=== PATIENT | female | born 1970 | race Two or more races ===

== ENCOUNTER 2016-10-26 18:02 | Emergency (ER) | payer OTHER | END 2016-10-26 20:07 | disposition home or self-care (01) | LOC: ER 18:02 | DX: S09.90XA Unspecified injury of head, initial encounter (principal); K14.8 Other diseases of tongue; V49.9XXA Car occupant (driver) (passenger) injured in unspecified traffic accident, initial encounter | CPT/HCPCS: 70450; 99284 ==